=== PATIENT | female | born 2000 | race Caucasian/White ===

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

== ENCOUNTER 2021-04-29 12:40 | Emergency (ER) | payer OTHER ==
[~2021-04-29] VITALS: Ht 157.5 cm; Wt 61.4 kg
[2021-04-29 12:40] VITALS: BP 114/63
[~2021-04-29 12:40] MED LIST changes: +STUACAP PO
== END 2021-04-29 13:20 | disposition left against medical advice (07) ==
LOC: M ED 12:40
DX: Z53.21 Procedure and treatment not carried out due to patient leaving prior to being seen by health care provider (principal)